=== PATIENT | male | born 1990 | race Caucasian/White ===

== ENCOUNTER → 2018-01-19 16:30 | Outpatient (CLI) | payer OTHER, SELFPAY | PROVIDERS: Visit Provider Otolaryngology | DX: J02.9 Acute pharyngitis, unspecified (principal) | CPT/HCPCS: 87070 ==

== ENCOUNTER 2019-01-18 12:32 | Emergency (ER) | payer OTHER, SELFPAY ==
[2019-01-18 12:33] VITALS: BP 134/80; PULSE 98; RESP 16; TEMP 36.8; O2SAT 97; BMI 30.8
--- NOTE | 2019-01-18 13:15 | VDLE_ITS ---
Reason For Study: LLE pain RIGHT LEFT CFV is compressible, spontaneous, phasic, GSV is normal. competent and demonstrates normal CFV is compressible, spontaneous, phasic, augmentation. competent, and demonstrates normal Procedure augmentation. Exam performed portable in ED. FV is compressible, spontaneous, phasic, The exam was diagnostic. competent and demonstrates normal The study was technically limited. augmentation. PT had difficulty tolerating compressions due POP V is compressible, spontaneous, phasic, to leg fractures and bruising. competent and demonstrates normal A preliminary report was called and/or faxed augmentation. to Dr. Cruz & ED. T/P Trunk is compressible. PTV is compressible. LT PerV is compressible. Interpretation Summary Deep veins of the left lower extremity are patent and compressible segmentally. There is no evidence of left lower extremity deep vein thrombosis. Valvular competence appears intact within the proximal deep venous system on the left . The left greater saphenous vein appears patent and compressible segmentally. Ordering Physician: Bigg Cruz Referring Physician: NO PCP Performed By: Azeb Cali, JASMINA, RVT
[2019-01-18 15:20] VITALS: BP 141/82; PULSE 68; RESP 16; O2SAT 99
[2019-01-18] MEDS: oxyCODONE 5 MG Tablet PO (15:23)
--- NOTE | 2019-01-18 15:25 | ED.VISSUMM ---
- ER Visit Summary Date of Service: 01/18/19 Chief Complaint: Numbness History of Present Illness: The patient is a 28 M male. He fell 25 feet about a week ago. He had an open left tib-fib fracture and a closed right fibular fracture. He was discharged on Monday. The surgery was at [facility] [place] by Dr. Velazquez. He was at physical therapy today. He was complaining of some paresthesias to his left lateral distal thigh, and left lateral ankle region. He was referred to the emergency department for possible DVT. Patient denies chest pain or shortness of breath. He is not on blood thinners. Patient does not believe the swelling is worse than it has been. He does have some pain in his calf. Denies fever, redness, drainage. Physical Examination: Afebrile and vital signs unremarkable. Patient alert and oriented. No acute distress. Inspection of his left leg shows clean, dry, intact incision sites to his left lower leg. There is diffuse swelling, but no shiny skin noted. No erythema or cyanosis noted. Left medial calf is tender to palpation proximally. He has subjective paresthesias to his left distal and lateral thigh and left lateral and distal lower leg. Compartments soft and nontender. Pulses strong and equal. Range of motion normal. No pain with passive flexion or extension. Test Results: Ultrasound negative for DVT. Emergency Department Course and Treatment: Patient declined pain medicine. Although he has some paresthesias, his pain is not out of proportion. He has no other signs of compartment syndrome. Ultrasound was done and was unremarkable. I paged his orthopedic surgeon, but at the time of this dictation, I have not heard back. Patient did receive 1 dose of oxycodone, his 3 PM medicine. He still has medication at home. Plan will be discharge home with orthopedic follow-up. Risks such as compartment syndrome, infection were discussed. Patient will follow-up with Ortho or return right away for any complications. Treatment Plan: As above Disposition: Discharge Impression: 1. Left leg pain 2. Left leg paresthesias This note was generated with [employer] software. It may contain incorrect words, spelling, and punctuation that were not noted in review of the chart prior to signing ED Disposition - Plan for ED Patient: Referrals: Bimal Cortes DO [Primary Care Provider] -
--- NOTE | 2019-01-18 15:30 | ED.DEP ---
ED Disposition - Plan for ED Patient: Instructions: Paraesthesias Additional Instructions: follow up with your orthopedic surgeon
[2019-01-18 16:11] VITALS: BP 142/80; PULSE 77; RESP 16; O2SAT 98
== END 2019-01-18 16:28 | disposition home or self-care (01) ==
LOC: ED 13:27
PROVIDERS: Emergency Provider Emergency Medicine; Family Provider Family Medicine; PCP Family Medicine
DX: M79.662 Pain in left lower leg (principal); R20.2 Paresthesia of skin
CPT/HCPCS: 93971; 99282